=== PATIENT | male | born 1990 | race African-American/Black ===

== ENCOUNTER 2018-11-17 00:41 | Outpatient (CLI) | payer OTHER ==
[2018-11-17 15:34] LABS: #Basophils 0.1 thou/uL (0.0-0.2); #Eosinphils 0.2 thou/uL (0.0-0.7); #Lymphocytes 2.8 thou/uL (1.20-3.40); #Monocytes 0.6 thou/uL (0.11-0.59); #Neutrophils 3.6 thou/uL (1.40-6.50); %Basophils 1.4 % (0.0-1.0); %Eosinophils 2.7 % (0.0-10.0); %Lymphocytes 38.7 % (21.0-51.0); %Monocytes 7.6 % (0.0-10.0); %Neutrophils 49.5 % (42.0-75.0); Hemoglobin 13.8 g/dL (14.0-18.0); Mean Corpuscular HGB CONC 32.1 g/dL (32.0-36.0); Mean Corpuscular Hemoglobin 28.7 pg (27.0-31.0); Mean Corpuscular Volume 89.5 fL (78.0-98.0); Mean Platelet Volume 6.3 fL (7.4-10.4); Platelet Count 287 thou/uL (130-400); RBC Distribution Width 11.4 % (11.5-14.5); Red Blood Cell (RBC) Count 4.83 mill/uL (4.70-6.10); White Blood Cell (WBC) Count 7.2 thou/uL (4.8-10.8)
[2018-11-17 15:58] LABS: Anion Gap 13 mmol/L (10-20); BUN (Urea Nitrogen) 14 mg/dL (8.9-20.6); Calc. Creatinine Clearance 0 mL/min (70-130); Calcium 10.2 mg/dL (7.8-10.44); Carbon Dioxide 25 mmol/L (22-29); Chloride 105 mmol/L (98-107); Estimated GFR-MDRD Greater than 90; Glucose 82 mg/dL (70-105); Potassium 4.3 mmol/L (3.5-5.1); Sodium 139 mmol/L (136-145)
== END 2018-11-17 00:42 | disposition home or self-care (01) ==
LOC: LABBT 00:41
PROVIDERS: ATTEND Surgery
DX: Z01.812 Encounter for preprocedural laboratory examination (principal); L72.9 Follicular cyst of the skin and subcutaneous tissue, unspecified
CPT/HCPCS: 80048; 85025

== ENCOUNTER 2018-11-22 13:25 | Day surgery (SDC) | payer OTHER ==
[2018-11-17 14:52] VITALS: BMI 25.1
[2018-11-22] MEDS ORDERED: Ondansetron PF 4 MG/2 ML Vial ONE (13:59)
[2018-11-22] MEDS ORDERED: Dexamethasone 20 MG/5 ML VIAL ONE (13:59)
[2018-11-22] MEDS ORDERED: PROPOFOL 200 MG/20 ML VIAL ONE (13:59)
[2018-11-22] MEDS ORDERED: Lidocaine 1% PF 5 ML VIAL ONE (13:59)
[2018-11-22] MEDS ORDERED: Bupivacaine HCl 0.5%/Epinephrine 1:200,000/PF 30 ml Vial ONE (15:37)
[2018-11-22] MEDS ORDERED: Lidocaine 2% PF 5 ML VIAL ONE (15:37)
[2018-11-22] MEDS ORDERED: Midazolam HCl 2 mg/2 ml Vial ONE (15:45)
[2018-11-22] MEDS ORDERED: Fentanyl 100 MCG/2 ML VIAL ONE (15:45)
--- NOTE | 2018-11-22 19:41 | OP ---
DATE OF PROCEDURE: 11/22/2018 PREOPERATIVE DIAGNOSIS: Right groin hidradenitis. POSTOPERATIVE DIAGNOSIS: Right groin hidradenitis. PROCEDURE PERFORMED: Excision of right groin hidradenitis. ANESTHESIA: General. ESTIMATED BLOOD LOSS: Minimal. COMPLICATIONS: None. SPECIMEN: Right groin skin. DESCRIPTION OF PROCEDURE: The patient was taken to the operating room and laid supine on the operating room table. After general anesthetic was obtained, the right groin was shaved, prepped, and draped in a sterile fashion. The previous excision was reexcised to more of a wider margin to run oblique incision down in the right groin. Cautery was used to dissect down all the way to the muscle. The skin and subcutaneous fat were removed with all chronically inflamed tissue. The wounds irrigated. Local anesthetic was applied. The wound was closed using 3-0 Vicryl, 4-0 Monocryl, and Dermabond. The patient was sent to recovery room in stable condition. All sponge counts, needle counts, and lap counts are correct. Job ID: [id number]
== END 2018-11-22 18:10 | disposition home or self-care (01) ==
LOC: SDC 13:25
PROVIDERS: ATTEND Surgery
PROC: 0JBC0ZZ Excision of Pelvic Region Subcutaneous Tissue and Fascia, Open Approach (ICD-10-PCS; principal; 2018-11-22)
DX: L73.2 Hidradenitis suppurativa (principal)
CPT/HCPCS: 88305; J0670; J1100; J2001; J2250; J2405; J2704; J3010